=== PATIENT | female | born 1990 | race Caucasian/White ===

== ENCOUNTER 2022-04-07 18:01 | Inpatient (IN) ==
[~2022-04-07 18:01] MED LIST: CeFAZolin 2,000 MG/120 ML BAG IVPB ONE; Famotidine 20 MG/2 ML VIAL IVP ONE; Metoclopramide 10 MG/2 ML VIAL IVP ONE; Oxytocin 30 UNIT/503 ML BAG IVC SCH; Ringers Solution, Lactated 1,000 ML IVC ONE; Ringers Solution, Lactated 1,000 ML IVC SCH; Ringers Solution, Lactated 1,000 ML ONE; Terbutaline 1 MG/ML VIAL SQ ONE
[2022-04-07 18:15] LABS: Basophils # 0.1 K/mcL (0.0-0.2); Basophils % 0.5 %; Eosinophils # 0.1 K/mcL (0.0-0.6); Eosinophils % 0.7 %; Hematocrit 37.9 % (35.3-44.9); Hemoglobin 12.3 g/dL (11.5-15.4); Immature Granulocytes % 0.7 % (0-4); Lymphocytes # 2.6 K/mcL (0.6-4.6); Lymphocytes % 24.1 %; Mean Corpuscular HGB Conc 32.5 g/dL (31.6-35.5); Mean Corpuscular Hemoglobin 28.5 pg (28.0-33.3); Mean Corpuscular Volume 87.7 fL (83.0-100.0); Mean Platelet Volume 11.8 fL (9.4-12.4); Monocytes # 0.8 K/mcL (0.0-1.3); Monocytes % 7.5 %; Neutrophils # 7.1 K/mcL (1.6-8.9); Platelet Count 183 K/mcL (140-400); Red Blood Count 4.32 M/mcL (3.82-4.97); Segmented Neutrophils % 66.5 %; White Blood Count 10.7 K/mcL (4.3-11.1)
[2022-04-07 19:25] LABS: Amphetamine Screen,Urine Negative ng/mL (Cutoff=1000); Barbiturate Screen,Urine Negative ng/mL (Cutoff=200); Benzodiazepines Screen,Urine Negative ng/mL (Cutoff=200); Cannabinoid Screen,Urine Negative ng/mL (Cutoff = 50); Cocaine Screen,Urine Negative ng/mL (Cutoff= 300); Creatinine,Urine 147 mg/dL; Opiate Screen,Urine Negative ng/mL (Cutoff=300); Phencyclidine Screen,Urine Negative ng/mL (Cutoff=25); Protein/Creatinine Ratio,Urine 0.27 mg/mg (0.00-0.20)
[2022-04-07 20:42] LABS: Alanine Aminotransferase 7 Units/L (7-52); Aspartate Amino Transferase 17 Units/L (13-39); BUN/Creatinine Ratio 14 (6-26); Blood Urea Nitrogen 8 mg/dL (6-20); Lactate Dehydrogenase 148 Units/L (140-271); Uric Acid 5.2 mg/dL (2.3-7.6); eGFR For African Americans > 60 (> 60); eGFR For Non-African Americans > 60 (> 60)
[2022-04-07] MEDS ORDERED: *HR* Morphine Sulfate/PF 10 MG/10 ML AMPUL ONE (23:07)
[2022-04-07] MEDS ORDERED: Ketorolac 30 MG/ML VIAL ONE (23:08)
[2022-04-07] MEDS ORDERED: Acetaminophen IV 1,000 MG/100 ML BAG IVPB ONE (23:08)
[2022-04-07] MEDS ORDERED: EPHEDrine 50 MG/ML VIAL ONE (23:08)
[2022-04-07] MEDS ORDERED: *HR* FentaNYL (PF) 100 MCG/2 ML VIAL ONE (23:08)
[2022-04-07] MEDS ORDERED: Ondansetron 4 MG/2 ML VIAL ONE (23:08)
[2022-04-07] MEDS ORDERED: CeFAZolin 2,000 MG/120 ML BAG IVPB ONE (23:17)
[2022-04-07] MEDS ORDERED: OXYTOCIN/RINGERS LACTATE 10 UNIT/166.6 ML BAG IVC ONE (23:17)
[2022-04-07] MEDS ORDERED: Metoclopramide 10 MG/2 ML VIAL IVP ONE (23:17)
[2022-04-07] MEDS ORDERED: Famotidine 20 MG/2 ML VIAL IVP ONE (23:17)
[2022-04-07] MEDS ORDERED: *HR* HYDROmorphone PF 0.5 MG/0.5 ML SYRINGE IVP PRN (23:21)
[2022-04-07] MEDS ORDERED: Ondansetron 4 MG/2 ML VIAL IVP PRN (23:21)
[2022-04-07] MEDS ORDERED: Ringers Solution, Lactated 1,000 ML IVC SCH (23:30)
[2022-04-07] MEDS ORDERED: Ringers Solution, Lactated 1,000 ML ONE (23:54)
[2022-04-08] MEDS ORDERED: OXYTOCIN/RINGERS LACTATE 10 UNIT/166.6 ML BAG IVC ONE (03:22)
[2022-04-08] MEDS ORDERED: Metoclopramide 10 MG/2 ML VIAL IVP PRN (03:22)
[2022-04-08] MEDS ORDERED: Ringers Solution, Lactated 1,000 ML IVC SCH (03:22)
[2022-04-08] MEDS ORDERED: Ondansetron 4 MG/2 ML VIAL IVP PRN (03:22)
[2022-04-08] MEDS ORDERED: Naloxone 0.4 MG/ML INJ IVP PRN (03:22)
[2022-04-08 05:33] LABS: Basophils % 0.2 %; Hematocrit 35.1 % (35.3-44.9); Hemoglobin 11.5 g/dL (11.5-15.4); Immature Granulocytes % 0.6 % (0-4); Lymphocytes # 1.2 K/mcL (0.6-4.6); Lymphocytes % 9.3 %; Mean Corpuscular HGB Conc 32.8 g/dL (31.6-35.5); Mean Corpuscular Hemoglobin 28.6 pg (28.0-33.3); Mean Corpuscular Volume 87.3 fL (83.0-100.0); Mean Platelet Volume 11.8 fL (9.4-12.4); Monocytes # 0.5 K/mcL (0.0-1.3); Monocytes % 3.9 %; Neutrophils # 11.1 K/mcL (1.6-8.9); Platelet Count 166 K/mcL (140-400); Red Blood Count 4.02 M/mcL (3.82-4.97); White Blood Count 12.9 K/mcL (4.3-11.1)
[2022-04-08] MEDS: Acetaminophen 325 MG TABLET PO SCH ×3 (05:43→19:15)
[2022-04-08] MEDS: Ibuprofen 600 MG TABLET PO SCH ×3 (05:43→19:15)
[2022-04-08] MEDS: Prenatal Vit/FA 1 EACH TABLET PO SCH (07:48)
[2022-04-09] MEDS: Simethicone 80 MG TAB.CHEW PO PRN ×2 (01:33→08:08)
[2022-04-09] MEDS: Ibuprofen 600 MG TABLET PO SCH ×3 (01:33→15:03)
[2022-04-09] MEDS: Acetaminophen 325 MG TABLET PO SCH ×3 (01:34→15:02)
[2022-04-09] MEDS: Prenatal Vit/FA 1 EACH TABLET PO SCH (08:07)
[2022-04-09] MEDS: *HR* OxyCODONE Immed Rel 5 MG TABLET PO PRN (20:15)
[2022-04-09 20:59] VITALS: O2SAT 98
[2022-04-10] MEDS: Ibuprofen 600 MG TABLET PO SCH ×2 (03:59→10:36)
[2022-04-10] MEDS: *HR* OxyCODONE Immed Rel 5 MG TABLET PO PRN (03:59)
[2022-04-10] MEDS: Acetaminophen 325 MG TABLET PO SCH ×2 (03:59→10:36)
[2022-04-10 07:40] VITALS: BP 136/87; PULSE 85; TEMP 98.4
[2022-04-10] MEDS: Prenatal Vit/FA 1 EACH TABLET PO SCH (07:54)
== END 2022-04-10 12:36 | disposition home or self-care (01) | DRG 788 ==
LOC: 1NENULAB → 1NENUOBS 04-08 03:22
PROVIDERS: ADMIT Obstetrics & Gynecology; ATTEND Obstetrics & Gynecology